=== PATIENT | female | born 1980 | race Caucasian/White ===

== ENCOUNTER 2016-11-14 17:18 | Emergency (ER) | payer SELFPAY ==
[~2016-11-14] VITALS: Ht 160 cm; Wt 173.0 kg
[~2016-11-14 17:18] MED LIST: CYCL-375 PO; HYDR-3989 PO; NO ROUTINE MEDS
[2016-11-14 17:20] VITALS: Ht 160 cm; Wt 173.0 kg
--- OUTSIDE RECORDS SUMMARY | 2016-11-14 17:23 | XMS REPORT | Continuity of Care Document ---
Author Author [facility] Organization [facility] Address Unknown Phone Unavailable Support Name Relationship Address Phone JONA MIRZA APRN Caregiver [address] [place] [address] Unavailable IMTIAZ ROBERTS MD Caregiver [address] [place] [address] [place] [phone] Unavailable KAYLI HOANG Next Of Kin [address] [address] Insurance Providers Guarantor Olu Robledo Address [address] [place] [address] Email [email or web address] Payer Self Pay Subscriber's Name Olu Robledo Relationship 18 Self Advance Directives Directive Response Recorded Date/Time Advanced Directives Type None 07/06/16 9:00am Chief Complaint and Reason for Visit Chief Complaint Upper Extremity Pain Reason for Visit [id number] Strain of right biceps muscle Problems Active Problems Medical Problem Onset Date Status Back pain Unknown Acute Pharyngitis Unknown Acute Rash and nonspecific skin eruption Unknown Acute Right shoulder pain Unknown Acute Toe contusion Unknown Acute Past Problems Medical Problem Onset Date Migraine Unknown Strain of right biceps muscle Unknown Strep pharyngitis Unknown Toe contusion Unknown Medications Current Home Medications Medication Dose Units Route Directions Days Qty Instructions Start Date Cyclobenzaprine Hcl 10 Mg Tablet 1 Tab Oral Three Times A Day as needed for Pain &/Or Spasm 20 Tablet 07/06/16 Hydrocodone/Acetaminophen (Hydrocodon-Acetaminophen 5-325) 5-325 Tablet 1-2 Tab Oral Every 6 Hours as needed for Pain 20 Tablet 07/06/16 No Routine Meds 07/06/16 Past Home Medications Medication Directions Ordered Status Hydrocodone/Acetaminophen (Coleman 5-325 Tablet) 1 Each Tablet, 1-2 Tab Oral Every 6 Hours for Pain 02/19/15 Discontinued Social History Social History Problem Response Recorded Date/Time Onset Date Status Chewing Tobacco Status No 07/06/2016 9:25am Not Applicable Not Applicable Hx Substance Use No 07/06/2016 9:25am Not Applicable Not Applicable Hx Alcohol Use No 07/06/2016 9:25am Not Applicable Not Applicable Query Response Start Date Stop Date Smoking Status Former smoker Hospital Discharge Instructions No hospital discharge instructions. Plan of Care Discharge Date 07/06/16 11:22am Disposition 01 DISCHARGED HOME, SELF-CARE Condition at Discharge Stable Instructions/Education Provided Strep Throat Muscle Strain Forms Provided Return to Work/School Permit Prescriptions See Medication Section Referrals JONA MIZRA MATERIAL CONTROL CLERK Address: [address] [place], [place] [phone] Note: Follow-up for evaluation Additional Instructions/Education Recommend ibuprofen 800 mg every 8 hours Care Plan and Goals Physician Care Plan Problem: Right biceps strain, strep pharyngitis Goal: Follow up with primary care provider Instructions: Take medications and follow care plan as discussed/written Functional Status No functional status results. Allergies, Adverse Reactions, Alerts Allergen Type Severity Reaction Status Last Updated Codeine Allergy Intermediate "PASSED OUT" Active 05/30/16 Immunizations Query Response on File Recorded Date/Time Hx Influenza Vaccination Y 201302/19/15 8:15pm Hx Pneumococcal Vaccination No 02/19/15 8:15pm Hx Influenza Vaccination Y 201302/19/15 8:15pm Influenza Vaccine Hx NONE 07/06/16 9:29am Tetanus Diptheria Vaccine History 200807/06/16 9:25am Tdap Vaccine Hx 200807/06/16 9:29am Vital Signs Acute Vital Signs Vital Response Date/Time Temperature (Fahrenheit) 98.8 deg F (96.8 - 99.1) 07/06/2016 9:00am Temperature (Calculated Celsius) 37.49171 degrees C (36.0 - 37.3) 07/06/2016 9:00am Pulse Rate (adult) 103 bpm (60 - 100) 07/06/2016 11:22am Respiratory Rate 16 breaths/min (10 - 20) 07/06/2016 11:22am O2 Sat by Pulse Oximetry 97 % (90 - 100) 07/06/2016 11:22am Blood Pressure 142/80 mm Hg 07/06/2016 11:22am Height (Feet) 5 feet 07/06/2016 9:00am Height (Inches) 3.00 inches 07/06/2016 9:00am Weight (Kilograms) 168.400 kg 07/06/2016 9:00am Body Mass Index (BMI) 65.0 07/06/2016 9:00am Results No known relevant diagnostic tests, laboratory data and/or discharge summary. Procedures No known history of procedures. Encounters Encounter Location Arrival/Admit Date Discharge/Depart Date Attending Provider Departed Emergency Room [facility] 07/06/16 8:43am 07/06/16 11: 22am IMTIAZ ROBERTS MD Departed Emergency Room [facility] 05/30/16 5:25pm 05/30/16 6: 40pm IMTIAZ ROBERTS MD Recent Diagnosis
--- NOTE | 2016-11-14 17:44 | ERPDOC ---
Departure Disposition Decision Date: Nov 14, 2016 Disposition Decision Time: 19:08 (NIKO KAUR APRN) Disposition: 01 DISCHARGED HOME, SELF-CARE Impression Impression (NIKO KAUR APRN) Impression: Primary Impression: Acute chest wall pain Severity: Moderate (NIKO KAUR APRN) Condition: Improved Seen By: Mid-level only (NIKO KAUR APRN) Referrals: JONA MIRZA APRN (Family) Patient Instructions: Chest Wall Pain (ED) Problems/Meds/Labs Reviewed?: Yes Medications reviewed and manag: Yes (NIKO KAUR APRN) Additional Instructions: You labs and chest x-ray were normal. Take ibuprofen 800mg every 8 hours with food or Aleve 2 tab twice daily with food for pain. Follow treatment plan (see dismissal packet). Follow with your PCP next week if symptoms are not improving. Follow up care ordered?: Yes Mental Status: Alert, Oriented (NIKO KAUR APRN) HPI - Chest Pain General Chief Complaint: Chest Pain Stated Complaint: CHEST PAIN Time Seen by Provider: 17:44 Source: patient (NIKO KAUR APRN) Time Seen by Provider: 18:02 (IMTIAZ ROBERTS MD) HPI - Chest Pain Initial Comments 36-year-old female presents to ER with left anterior chest pain which started at 1300 today. Pain is sharp and worse when taking a deep breath. Patient denies fever, chills, cough, SOA, abdominal pain or chest wall strain. Has not taken anything for pain. Denies any hx. of heart disease or respiratory disease. Pain/Severity Scale: Now: 7/10, Worst: 9/10 Location: anterior L Quality: sharp Associated Symptoms: DENIES: abdominal pain, back pain, diaphoresis, dizziness , edema, fatigue, fever/chills, headache, heartburn, nausea/vomiting, rash, shortness of breath, swelling/lump in chest, weakness Chest Pain Radiation: no radiation Nitro Today/Relief: no nitro taken today Aspirin Treatment Today: 81 mg x 4, provided by ED (NIKO KAUR APRN) Allergies: Coded Allergies: codeine (Verified Allergy, Intermediate, "PASSED OUT", 11/14/16) Past History Past Medical History Metabolic: diabetes (type II), hypertension ENMT: sleep apnea Respiratory: asthma GI: gallbladder disease Female: kidney stones Neurological: migraines Musculoskeletal: back pain, osteoarthritis Psychological: anxiety, depression (NIKO KAUR ICE RINK ATTENDANT) Surgical History General: appendix, hernia Reproductive/: Joint: knee (NIKO KAUR APRN) Family History Family PMH: FOUND: diabetes (NIKO KAUR APRN) Vaccines Hx Influenza Vaccination: Yes (2013) Hx Pneumococcal Vaccination: No (NIKO KAUR APRN) Social History Substance Use Type: does not use Alcohol Intake: none Current Occupational Status: employed (NIKO KAUR APRN) Review of Systems Constitutional Constitutional: DENIES: chills, dizziness, fever, weakness (NIKO AKUR ICE RINK ATTENDANT) Eyes General: DENIES: erythema, exudate Lids/Accessories: DENIES: erythema, swelling (NIKO KAUR ICE RINK ATTENDANT) ENMT Ears: DENIES: pain Sinuses: DENIES: congestion, rhinorrhea Mouth/Throat: DENIES: sore throat (NIKO KAUR ICE RINK ATTENDANT) Cardiovascular Cardiac: chest pain, see HPI, DENIES: murmur Rhythm/Rate: DENIES: palpitations (NIKO KAUR ICE RINK ATTENDANT) Pulmonary Respiratory: DENIES: cough, dyspnea (NIKO KAUR ICE RINK ATTENDANT) GI Upper Abdomen: DENIES: nausea, pain, vomiting Lower Abdomen: DENIES: blood in stool, diarrhea, pain (NIKO KAUR ICE RINK ATTENDANT) General: DENIES: dysuria, pain (JOSÉ MIGUEL KAURS A ICE RINK ATTENDANT) Musculoskeletal General: DENIES: joint pain, pain, tenderness (NIKO KAUR ICE RINK ATTENDANT) Integumentary Skin: DENIES: color change, itching, rash (NIKO KAUR ICE RINK ATTENDANT) Neurological General: DENIES: ataxia, change in strength, numbness, paralysis/paresis, weakness (JOSÉ MIGUEL KAURS Jack ICE RINK ATTENDANT) Psychiatric Psychiatric: DENIES: anxiety, depression, nervousness (NIKO KAUR ICE RINK ATTENDANT) Physical Exam General General Nourishment: well nourished, well developed, adult, obese General Body Habitus: well groomed (NIKO KAUR A ICE RINK ATTENDANT) Vitals and Pain First Documented Vital Signs Date Time Temp Pulse Resp B/P Pulse Ox O2 Delivery O2 Flow Rate FiO2 11/14/16 17:20 98.2 95 20 133/71 97 Room Air (IMTIAZ ROBERTS MD) Vitals and Pain Weight: Kilograms: 173.000 Height (feet): 5 Height (inches): 3.00 Triage Pain Scale: (JOSÉ MIGUEL KAURS Jack ICE RINK ATTENDANT) Eyes (brief) Eyes Brief: found: EOMI (JOSÉ MIGUEL KAURS A ICE RINK ATTENDANT) ENMT (brief) ENMT Brief: NOT FOUND: nasal exudate, nasal swelling (JOSÉ MIGUEL KAURS A ICE RINK ATTENDANT) Neck (brief) Neck: FOUND: trachea midline (JOSÉ MIGUEL KAURS A ICE RINK ATTENDANT) Respiratory (brief) Respiratory: FOUND: clear all carey, equal bilaterally, symmetrical, tenderness (TTP ICS 3-5 MCL) (JOSÉ MIGUEL KAURS A ICE RINK ATTENDANT) Cardiovascular Auscultation: FOUND: S1, S2, rate (92), regular (JOSÉ MIGUEL KAURS A ICE RINK ATTENDANT) Abdomen (brief) Abdominal Brief: FOUND: bowel normo active x4, soft, NOT FOUND: tender (JOSÉ MIGUEL KAURS A ICE RINK ATTENDANT) Musculoskeletal (brief) Musculoskeletal Brief: NOT FOUND: deformity, loss of motion (JOSÉ MIGUEL KAURS A ICE RINK ATTENDANT) Integumentary (brief) Integumentary Brief: FOUND: dry, pink, warm (JOSÉ MIGUEL KUARS A ICE RINK ATTENDANT) Neurologic (brief) Neurological Brief: FOUND: motor-no gross deficits, sensory-no gross deficits ( JOSÉ MIGUEL KAURS A ICE RINK ATTENDANT) Psychiatric (brief) Psychiatric Brief: FOUND: alert, normal affect, oriented (JOSÉ MIGUEL KAURS A ICE RINK ATTENDANT ) Differential Diagnoses Considering: Acute OH, Anxiety/Panic, Angina, Costochondritis, Esophageal Spasm , GERD, Pleurisy, Pneumonia, Pulmonary Edema, Pulmonary Embolus, Muscle Spasm (JOSÉ MIGUEL KAURS A ICE RINK ATTENDANT) Progress Results/Orders Orders Procedure Category Date Status Time EKG EKG 11/14/16 Taken Cbc W/Auto LAB 11/14/16 Complete Diff-Reflex Manual 18:02 Cmp - Comprehensive LAB 11/14/16 Complete Metabolic 18:02 Probnp LAB 11/14/16 Complete 18:02 Troponin I W LAB 11/14/16 Complete Hemolysis Index 18:02 D-Dimer LAB 11/14/16 Complete 18:02 Chest, Pa & Lateral RAD 11/14/16 Taken 18:02 Iv Lock (Ed Only) EDM 11/14/16 Transmitted 18:02 Aspirin (Asa) PHA 11/14/16 Complete 18:15 Ketorolac (Toradol) PHA 11/14/16 Complete 19:00 (IMTIAZ ROBERTS MD) Lab Results Laboratory Tests Test 11/14/16 18:21 White Blood Count 12.9T/MM3 Red Blood Count 3.52M/MM3 Hemoglobin 10.4GM/DL Hematocrit 31.9% Mean Corpuscular Volume 90.6UM3 Mean Corpuscular Hemoglobin 29.5UUG Mean Corpuscular Hemoglobin Concent 32.6GM/DL RDW Standard Deviation 42.1FL Platelet Count 252T/MM3 Mean Platelet Volume 11.2UM3 Immature Granulocyte % (Auto) 0.3% Neutrophils (%) (Auto) 64.8% Lymphocytes (%) (Auto) 26.2% Monocytes (%) (Auto) 6.3% Eosinophils (%) (Auto) 2.2% Basophils (%) (Auto) 0.2% Absolute Immature Granulocyte (auto 0.04T/MM3 Absolute Neutrophils (auto) 8.3T/MM3 Absolute Lymphocytes (auto) 3.4T/MM3 Absolute Monocytes (auto) 0.8T/MM3 Absolute Eosinophils (auto) 0.3T/MM3 Absolute Basophils (auto) 0.0T/MM3 D-Dimer < 150NG/ML Turbidity < 20 Sodium Level 143MEQ/L Potassium Level 3.8MEQ/L Chloride Level 107MEQ/L Carbon Dioxide Level 24MEQ/L Anion Gap 12MEQ/L Blood Urea Nitrogen 17.0MG/DL Creatinine 0.6MG/DL Glomerular Filtration Rate Calc 113 BUN/Creatinine Ratio 28RATIO Glucose Level 119MG/DL Calculated Osmolality 278MOSM/KG Calcium Level 8.8MG/DL Total Bilirubin 0.30MG/DL Icterus Index < 2 Aspartate Amino Transf (AST/SGOT) 21U/L Alanine Aminotransferase (ALT/SGPT) 31U/L Alkaline Phosphatase 60U/L Troponin I < 0.012ng/ml KY-Hpy-U-Type Natriuretic Peptide 41PG/ML Total Protein 7.2G/DL Albumin 3.7G/DL Globulin 3.5G/DL Albumin/Globulin Ratio 1.1RATIO Chemistry Specimen Hemolysis 26 (IMTIAZ ROBERTS MD) Medications Current ED Medications Aspirin (ASA) 324 mg O ONCE PO Last administered on 11/14/16t 18:19; Start at 18:15; Stop 11/14/16 at 18:16; Status DC Ketorolac Tromethamine (Toradol) 30 mg O ONCE IV Last administered on t 19:05; Start 11/14/16 at 19:00; Stop 11/14/16 at 19:01; Status DC (IMTIAZ ROBERTS MD) Progress Progress CBC and CMP unremarkable D-dimer <150 Trop <0.012 CXR no acute cardiopulmonary findings Patient VS improving Patient reports that her pain is improved after Toradol. Pain is reproducible, increases with deep breath which is consistent with chest wall pain. I discussed labs and CXR and answered questions. Patient verbalized understanding of treatment plan, follow up with PCP and return precautions. (NIKO KAUR APRN) EKG EKG : Rate: >100 Rhythm: sinus [place]: normal QRS: normal Intervals: normal ST/T: normal Interpreted by: signing physician (Dr. Chowdary) (NIKO KAUR APRN) Xray Xray : Xray: CXR PA/Lat Interpretation: Normal (no acute cardiopulmonary findings (Dr. Roberts)) (NIKO KAUR APRN) Xray : Xray: CXR PA/Lat Interpretation: Normal, Interpreted by Me (no acute cardiopulmonary findings ) (IMTIAZ ROBERTS MD) NIKO KAUR APRN Nov 14, 2016 17:44 IMTIAZ ROBERTS MD Nov 14, 2016 22:09
[2016-11-14] MEDS ORDERED: CALC-1124 PO (17:47)
[2016-11-14] MEDS ORDERED: CALC-809 PO (17:47)
[2016-11-14] MEDS ORDERED: ASPI1TAB7 PO (17:47)
--- NOTE | 2016-11-14 17:48 | NUR ---
JOHN JOHNSON IN WITH PT
[2016-11-14] MEDS ORDERED: ASPIRIN 81 MG CHEWABLE TABLET PO ONE (18:15)
[2016-11-14 18:36] LABS: ALBUMIN 3.7 G/DL (3.5-5.0); ALBUMIN/GLOBULIN RATIO 1.1 RATIO (1.1-2.2); ALKALINE PHOSPHATASE 60 U/L (38-126); ALT (SGPT) 31 U/L (9-52); ANION GAP 12 MEQ/L (5-15); AST (SGOT) 21 U/L (14-36); BUN/CREATININE RATIO 28 RATIO (6-26); CALCIUM 8.8 MG/DL (8.4-10.2); CHLORIDE 107 MEQ/L (98-107); CO2 - CARBON DIOXIDE 24 MEQ/L (22-30); CREATININE 0.6 MG/DL (0.7-1.2); GLOMERULAR FILTRATION RATE 113; GLUCOSE 119 MG/DL (65-110); POTASSIUM 3.8 MEQ/L (3.6-5); SODIUM 143 MEQ/L (134-144); TOTAL PROTEIN 7.2 G/DL (6.3-8.2)
--- NOTE | 2016-11-14 18:39 | NUR ---
PT TO XRAY
--- NOTE | 2016-11-14 18:43 | NUR ---
IMAGING PT RETURN FROM IMAGING AT THIS TIME.
[2016-11-14 18:48] LABS: PROBNP 41 PG/ML (0-175)
[2016-11-14 18:49] LABS: BASOPHILS % (AUTO) 0.2 % (0-2); EOSINOPHILS # (AUTO) 0.3 T/MM3 (0-0.5); EOSINOPHILS % (AUTO) 2.2 % (0-4); HCT - HEMATOCRIT 31.9 % (36-46); HGB - HEMOGLOBIN 10.4 GM/DL (12-16); IMMATURE GRANULOCYTE # (AUTO) 0.04 T/MM3 (0.00-0.03); IMMATURE GRANULOCYTE % (AUTO) 0.3 % (0.0-0.5); LYMPHOCYTES # (AUTO) 3.4 T/MM3 (1-4.8); LYMPHOCYTES % (AUTO) 26.2 % (23-45); MEAN CORPUSCULAR HGB 29.5 UUG (26-34); MEAN CORPUSCULAR HGB CONC(MCHC 32.6 GM/DL (31-37); MEAN CORPUSCULAR VOLUME 90.6 UM3 (80-100); MEAN PLATELET VOLUME 11.2 UM3 (9.4-12.4); MONOCYTES # (AUTO) 0.8 T/MM3 (0-0.8); MONOCYTES % (AUTO) 6.3 % (0-9.0); NEUTROPHILS #(AUTO)-ABSOLUTE 8.3 T/MM3 (1.8-7.7); NEUTROPHILS % (AUTO) 64.8 % (33-66); RED BLOOD COUNT 3.52 M/MM3 (4.00-5.20); WBC - WHITE BLOOD COUNT 12.9 T/MM3 (4.5-11.0)
[2016-11-14] MEDS ORDERED: KETOROLAC 30mg/ml INJECTION IV ONE (19:00)
--- NOTE | 2016-11-14 19:10 | NUR ---
STATUS PT RESTING ON CART. AOX3. REPORTS CP 01/10 - PROVIDER NOTIFIED. PT GIVEN TORADOL PER ORDER. DENIES FURTHER NEEDS AT THIS TIME.
[2016-11-14 20:00] VITALS: PULSE 86; RESP 18; TEMP 98.2; O2SAT 98
[2016-11-14 20:01] VITALS: BP 129/71
--- NOTE | 2016-11-15 21:11 | DI ---
INDICATION: ITS.REASON: chest pain PROCEDURE: CHEST 2-VIEWS UPRIGHT (PA \T\ LAT) Encounter: Initial COMPARISON: None FINDINGS: The lungs are clear without evidence of focal abnormal airspace opacity. There is no pleural effusion or pneumothorax. The heart size, mediastinal contours and pulmonary vascularity are within normal limits. There is no significant skeletal abnormality. IMPRESSION: No acute cardiopulmonary disease. .
== END 2016-11-14 20:00 | disposition home or self-care (01) ==
LOC: ED 17:18
DX: R07.89 Other chest pain (principal); I10 Essential (primary) hypertension
CPT/HCPCS: 80053; 83880; 84484; 85025; 85379; 93005